=== PATIENT | male | born 1975 | race Caucasian/White ===

== ENCOUNTER 2018-01-25 16:14 | Emergency (ER) | payer SELFPAY ==
[2018-01-25] MEDS ORDERED: Ondansetron HCl/PF 4 MG/2 ML Vial ONE (16:35)
[2018-01-25] MEDS ORDERED: diphenhydrAMINE 50 MG/ML VIAL ONE (16:35)
[2018-01-25] MEDS ORDERED: Metoclopramide HCl 10 MG/2 ML VIAL ONE (16:35)
== END 2018-01-25 17:42 | disposition home or self-care (01) ==
LOC: ERS 16:14
DX: R51 Headache (principal); F41.9 Anxiety disorder, unspecified
CPT/HCPCS: 96365; 96375; J1200; J2405; J2765

== ENCOUNTER 2018-02-03 17:13 | Emergency (ER) | payer SELFPAY ==
[2018-02-03] MEDS ORDERED: Ketorolac Tromethamine 30 MG/ML VIAL ONE (18:10)
[2018-02-03] MEDS ORDERED: Acetaminophen 500 MG TAB ONE (18:10)
[2018-02-03] MEDS ORDERED: Dexamethasone 4 mg/ml Vial ONE (18:11)
[2018-02-03] MEDS ORDERED: diphenhydrAMINE 50 MG/ML VIAL ONE (18:11)
[2018-02-03] MEDS ORDERED: Metoclopramide HCl 10 MG/2 ML VIAL ONE (18:17)
[2018-02-03] MEDS ORDERED: Dexamethasone 10 MG/ML VIAL ONE (18:23)
== END 2018-02-03 19:31 | disposition home or self-care (01) ==
LOC: ERS 17:13
DX: R51 Headache (principal); G43.909 Migraine, unspecified, not intractable, without status migrainosus; F41.9 Anxiety disorder, unspecified
CPT/HCPCS: 96365; 96375; J1100; J1200; J1885; J2765